=== PATIENT | male | born 1970 | race Caucasian/White ===

== ENCOUNTER 2018-09-27 06:15 | Day surgery (SDC) | payer OTHER ==
[2018-09-24 11:16] VITALS: BMI 33.5
--- NOTE | 2018-09-24 15:22 | HP ---
Date/Time of Note Date/Time of Note DATE: 09/24/18 TIME: 15:15 Assessment/Plan VTE Prophylaxis SCD applied (from Ns): Yes Pharmacological prophylaxis: heparin Assessment/Plan Problems: (1) Pre-op exam Status: Acute Comment: At this time I find Mr. Doyle to be an acceptable surgical candidate concur with your plans to proceed with surgery. He is at average surgical risk as compared to his age-matched peers and should do well using all standard routine anesthesia precautions. Using the modified Johnson's criteria is at low risk for this procedure. (2) Rupture of right Achilles tendon Status: Acute Comment: This is a second attempt at repair. Foot and ankle surgery has as well in control Qualifiers: Encounter type: subsequent encounter Qualified Codes: S86.011D - Strain of right Achilles tendon, subsequent encounter HPI/ROS Admit Date/Time Admit Date/Time September 27 2018 Hx of Present Illness This is a charming 48-year-old male being brought in electively for revision repair of right Achilles tendon rupture. He is being admitted by Dr. Sunny Hedrick. ROS Constitutional: no complaints Eyes: no complaints ENT: no complaints Respiratory: no complaints Cardiovascular: no complaints Gastrointestinal: no complaints Genitourinary: no complaints Musculoskeletal: no complaints Skin: no complaints Neurologic: no complaints Endocrine: no complaints Lymphatic: no complaints PMH/Family/Social Past Medical History Medical History: other (Right Achilles tendon rupture; lumbar disc disease) Coded Allergies: No Known Allergy (Unverified , 09/24/18) Past Surgical History Past Surgical Hx: other (Status post right Achilles tendon repair July 23, 2018; status post radiofrequency ablation for back pain) Family History Significant Family History: diabetes, other (Gated for anesthesia reactions) Social History Born in [facility] and raised. 3-1/2 years of college without experience. 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 lives with his of 12 years and their children Alcohol Use: rarely Smoking Status: Never smoker Drug Use: none Exam/Review of Systems Vital Signs Vitals Height 5 feet 10 inches; weight 245 pounds; blood pressure 110/76; pulse 88; temperature 98.5; respirations 18 Exam Constitutional: alert, oriented Psych: nl mood/affect Head: normocephalic, atraumatic Eyes: nl conjunctiva, EOMI, nl lids, nl sclera, PERRL ENMT: nl external ears & nose, nl lips & teeth, nl nasal mucosa & septum, mucosa pink and moist Neck: supple, non-tender Respiratory: clear to auscultation, normal air movement Cardiovascular: regular rate and rhythm, nl pulses Gastrointestinal: soft, nl liver, spleen, non-tender Extremities: normal pulses Neurological: RN RADIATION ONCOLOGY II-XII intact, nl mental status, nl speech, nl strength CAMI WYLIE MD Sep 24, 2018 15:22
[~2018-09-27] VITALS: Ht 180.3 cm; Wt 115.9 kg
[2018-09-27] VITALS (31 sets, daily range): BP systolic 124–174; BP diastolic 70–95; PULSE 78–110; RESP 12–29; Ht 180.3 cm; Wt 115.9 kg
[2018-09-27] MEDS ORDERED: FINA1TAB16 PO (06:43)
--- NOTE | 2018-09-27 06:44 | PREAC ---
Date/Time of Note Date/Time of Note DATE: 09/27/18 TIME: 06:41 Anesthesia Eval and Record Evaluation Time Pre-Procedure Interview DATE: 09/27/18 TIME: 06:41 Age 48 Sex male NPO: 8 hrs Preoperative diagnosis Right Achilles Tendon Rupture Planned procedure Right Achilles Tendon repair with Achilles allograft reinforcement. Past Medical History Past Medical History: None Surgery & Anesthesia Issues No known issue Meds Anticoagulation: No Beta Cinda within 24 hr: No Reason Beta Cinda not given: Pt. not on B-Cinda Meds reviewed: Yes Allergies Coded Allergies: No Known Allergy (Unverified , 09/24/18) Allergies Reviewed: Yes Labs/Studies Labs Reviewed: Reviewed by anesthesiologist test: N/A Studies: ECG (n/a), CXR (n/a) Pre-procedure Exam Airway: Adequate mouth opening, Adequate thyromental dist Mallampati: Mallampati II Teeth: Normal Lung: Normal Heart: Normal ASA Physical Status ASA physical status: 2 Emergency: None Planned Anesthetic General/MAC: ETT Nerve block: Sciatic (right) Planned Pain Management Single shot nerve block, Parenteral pain med Pre-operative Attestations Prior to commencing anesthesia and surgery, the patient was re-evaluated, there was verification of: *The patient's identity *The results of appropriate recent lab work and preoperative vital signs *The above evaluation not changing prior to induction *Anesthetic plan, risk benefits, alternative and complications discussed with patient/family; questions answered; patient/family understands, accepts and wishes to proceed. FRANCESCA SOLER MD Sep 27, 2018 06:44
[2018-09-27] MEDS ORDERED: PROPOFOL 20 ML ONE (06:47)
[2018-09-27] MEDS ORDERED: ROPIVACAINE 0.5 % 30 ML VIAL ONE ×2 (06:47→08:19)
[2018-09-27] MEDS ORDERED: CEFAZOLIN 1 GM INJ ONE ×2 (06:47→15:26)
[2018-09-27] MEDS ORDERED: ROCURONIUM 50 MG INJ ONE ×2 (06:47→09:14)
[2018-09-27] MEDS ORDERED: MIDAZOLAM 1 MG/ML 2 ML INJ ONE ×2 (06:47→07:21)
[2018-09-27] MEDS ORDERED: PROPOFOL 200 MG INJ ONE (07:00)
[2018-09-27] MEDS ORDERED: KETOROLAC 30 MG INJ ONE ×2 (07:42→09:45)
[2018-09-27] MEDS ORDERED: METOCLOPRAMIDE 10 MG INJ ONE (07:42)
[2018-09-27] MEDS ORDERED: ONDANSETRON 4 MG INJ ONE (07:42)
[2018-09-27] MEDS ORDERED: DEXAMETHASONE 4 MG/ML 5 ML INJ ONE (07:42)
[2018-09-27] MEDS ORDERED: POVIDONE IODINE 10% 28.4 GM OINT ONE (08:19)
[2018-09-27] MEDS ORDERED: POLYMYXIN/BACITRACIN 1L IRRIG ONE (08:19)
[2018-09-27] MEDS ORDERED: CA CHLORIDE (GM) 10% 10 ML INJ ONE (08:21)
[2018-09-27] MEDS ORDERED: THROMBIN 5000 UNIT VIAL ONE (08:21)
[2018-09-27] MEDS ORDERED: FENTAnyl 50 MCG/ML VIAL IV PRN ×2 (09:30)
[2018-09-27] MEDS ORDERED: OXYCODONE/ACETAMINOPHEN (5/325) TAB PO PRN ×4 (09:30→11:00)
[2018-09-27] MEDS ORDERED: METOCLOPRAMIDE 10 MG INJ IV PRN (09:30)
[2018-09-27] MEDS ORDERED: HYDROmorphONE 1 MG/5 ML IV SYRINGE IV PRN ×2 (09:30)
[2018-09-27] MEDS ORDERED: EPHEDrine SULFATE 50 MG/5 ML SYG IV PRN (09:30)
[2018-09-27] MEDS ORDERED: DIPHENHYDRAMINE 50 MG INJ IV PRN (09:30)
[2018-09-27] MEDS ORDERED: MEPERIDINE 25 MG INJ IV PRN (09:30)
[2018-09-27] MEDS ORDERED: ONDANSETRON 4 MG INJ IV PRN ×2 (09:30→11:00)
[2018-09-27] MEDS ORDERED: LABETALOL HCL 20MG INJ IV PRN (09:30)
[2018-09-27] MEDS ORDERED: FENTAnyl 50 MCG/ML VIAL ONE (10:13)
[2018-09-27] MEDS ORDERED: SUGAMMADEX SODIUM 200 MG/2 ML VIAL IV ONE (10:14)
--- NOTE | 2018-09-27 10:38 | PAC ---
Date/Time of Note Date/Time of Note DATE: 09/27/18 TIME: 10:38 Post-Anesthesia Notes Post-Anesthesia Note Last documented vital signs Vital Signs Date Temp Pulse Resp B/P (MAP) Pulse Ox O2 O2 Flow FiO2 Time Delivery Rate 09/27/18 98.6 94 16 146/85 97 Room Air 10:34 (105) Activity: WNL Respiratory function: WNL Cardiovascular function: WNL Mental status: Baseline Pain reasonably controlled: Yes Hydration appropriate: Yes Nausea/Vomiting absent: Yes FRANCESCA SOLER MD Sep 27, 2018 10:38
[2018-09-27] MEDS ORDERED: SOD CHLORIDE 0.9% 1,000 ML IV SCH (10:41)
--- NOTE | 2018-09-27 10:41 | OPPN ---
Date/Time of Note Date/Time of Note DATE: 09/27/18 TIME: 10:40 Operative Report Preoperative Diagnosis Right Achilles tendon retear Postoperative Diagnosis same Operation/Procedure Performed Open Achilles tendon repair with allograft augmentation and PRP Surgeon see signature line assistant wrestling coach DO Bryanna Anesthesia: general, MAC Estimated blood loss: minimal Transfusion Required none Specimen none Grafts/Implants none Complications none JOSELITO COOK MD Sep 27, 2018 10:41
[2018-09-27] MEDS ORDERED: morphine 2 MG INJ IV PRN (11:00)
[2018-09-27] MEDS: HYDROmorphONE 1 MG/5 ML IV SYRINGE IV PRN ×3 (11:02→11:18)
[2018-09-27] MEDS: FENTAnyl 50 MCG/ML VIAL IV PRN ×3 (11:03→12:12)
--- NOTE | 2018-09-27 12:55 | OPR ---
DATE OF OPERATION: 09/27/2018 PREOPERATIVE DIAGNOSIS: Retear of the right Achilles tendon repair. POSTOPERATIVE DIAGNOSES: 1. Retear right Achilles tendon repair. 2. Extensive adhesions and scar tissue along the repair. OPERATION PERFORMED: 1. Redo repair, right Achilles tendon rupture. 2. Insertion of the Achilles tendon allograft over the repair of the Achilles to augment it. 3. Removal of foreign body sutures. 4. Insertion of PRP under the Achilles repair. 5. Short-leg cast. Extremely complex difficult procedure because there was extensive amount of scarring and adhesions. The tissue was difficult to identify and mobilize and difficult to repair. In addition, because it w as a redo, everything was much more difficult to perform because this involved an additional 60 minut es of time (22). James Shelley MD ANESTHESIA: General with popliteal block. TOURNIQUET TIME: 68 minutes. DESCRIPTION OF PROCEDURE: The patient taken to the operating room and placed in supine position. Sa tisfactory popliteal block was given. Satisfactory general anesthesia was administered. The patient received 2 grams Ancef intravenously. The patient was placed in the prone position. The right leg was prepped and draped in the usual manner. We then draped out both feet as we could feel the repair easily and we felt that whatever tension we could get would be optimum. Incision was made through th e previous incision. Dissection carried down to subcutaneous tissue. There was tremendous amount of scarring and adhesions. Very carefully we tried to mobilize the scar away from the subcutaneous tis asmita, 3-0 undyed Vicryl was placed in the skin edges for the only retraction we used. There were a lo t of adhesions and scar tissue over the Achilles previous repair. The adhesions were extensive which were freed up. We freed up the proximal portion of the Achilles tendon. We then tried to free up t he distal portion of the Achilles tendons and scarring adhesions were removed. It was very hard to f ree up the distal portion of the tendon. At the original surgery there was not grade tissue in this area and it was difficult to mobilize after freeing up and mobilized as much as we could medially, we left the scar attached laterally. The sural nerve was identified and retracted carefully out of the field. The FiberWire tape was then weaved through the proximal portion of the Achilles with a Krako w suture and then weaved through back down to the tip of the Achilles rupture. Prior to doing this, the tape was soaked with antibiotic. It should be noted prior to using any antibiotics during the ca se, that multiple cultures were taken of the wound to rule out infection. There were no gross signs of infection at the time of surgery. After the suture tape was placed proximally it was then weaved distally with a [place] stitch, being c areful to get as much good tissue as possible. Once we had good tissue, the wounds were irrigated wi antibiotic solution. Wounds were minimally debrided. The sutures were then tied with the foot in plantarflexion. There was stable without tension at least a 45-50 degrees based on her testing. e tourniquet was released, bleeders were coagulated, wounds irrigated with antibiotic solution. The Achilles tendon allograft was defrosted, we felt we should use a little bit of it to augment the Ach illes repair and try to get additional collagen into the area where it was thin, particularly distall y. The thinnest portion of the Achilles tendon allograft tendon tissue was then cut and sized and wa s then placed over the repair and sutured with 3-0 PDS. It nicely covered the whole area. We pulled the underlying flexor muscle to the area to enhance bleeding and healing. When we were done, the ompson test was negative. Wounds were then irrigated again with antibiotic solution. Wounds were cl osed with 3-0 undyed Vicryl and 4-0 black nylon. PRP which previously sterilely been drawn and then spun down was then inserted in the whole subcutaneous space to facilitate healing of the Achilles ten don construct. Ropivacaine 0.5% was used to perform a saphenous nerve block. Compression dressing a pplied as well as a short-leg cast in 20 degrees of plantarflexion. Interprocedure sponge and needle count was correct. The patient tolerated procedure well and the cast was split in the recovery room . 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 e volleyball assistant coach helped with mobilization the tendon with suturing the tendon and overall repair. Without a skilled orthopedic surgeon assisting me, this could not have done and this should be compensated a ppropriately. Dictated By: JOSELITO GONZALEZ/IZZY Conf#: [id number] DID#: [id number]
== END 2018-09-27 13:58 | disposition home or self-care (01) ==
LOC: SDS 06:15
PROVIDERS: ATTEND Orthopaedic Surgery
DX: S86.011A Strain of right Achilles tendon, initial encounter (principal); X58.XXXA Exposure to other specified factors, initial encounter; Y93.01 Activity, walking, marching and hiking; Y92.009 Unspecified place in unspecified non-institutional (private) residence as the place of occurrence of the external cause; L90.5 Scar conditions and fibrosis of skin
CPT/HCPCS: 27654; 87070; 87075; C1762; J0690; J1100; J1170; J1885; J2175; J2250; J2270; J2405; J2765; J2795; J3010